=== PATIENT | male | born 1995 | race African-American/Black ===

== ENCOUNTER 2018-11-01 00:49 | Emergency (ER) | payer MEDICAID ==
[~2018-11-01] VITALS: Ht 195.6 cm; Wt 77.0 kg
[2018-11-01] MEDS ORDERED: IBUPROFEN 600MG TABLET PO ONE (01:45)
[2018-11-01 03:12] VITALS: BP 122/70
== END 2018-11-01 04:13 | disposition home or self-care (01) ==
LOC: ER 00:49
DX: S63.296A Dislocation of distal interphalangeal joint of right little finger, initial encounter (principal); Y93.67 Activity, basketball; Y92.89 Other specified places as the place of occurrence of the external cause; F17.210 Nicotine dependence, cigarettes, uncomplicated; F12.90 Cannabis use, unspecified, uncomplicated
CPT/HCPCS: 26770; 73130; 99284